=== PATIENT | female | born 1965 | race Caucasian/White ===

== ENCOUNTER 2017-10-09 05:46 | Inpatient (IN) | payer OTHER ==
[2017-10-09] MEDS ORDERED: EPHEDrine SULFATE 50 MG/5 ML SYG (07:00)
[2017-10-09] MEDS ORDERED: morphine SULFATE/PF (10 MG/10 ML) INJ (08:00)
[2017-10-09] MEDS ORDERED: FENTAnyl 50 MCG/ML VIAL (08:00)
[2017-10-09] MEDS ORDERED: ROCURONIUM 50 MG INJ (08:02)
[2017-10-09] MEDS ORDERED: PROPOFOL 20 ML (08:02)
[2017-10-09] MEDS ORDERED: LIDOCAINE 1% (MDV) 20 ML INJ (08:02)
[2017-10-09] MEDS ORDERED: MIDAZOLAM 1 MG/ML 2 ML INJ (08:04)
[2017-10-09] MEDS ORDERED: CEFAZOLIN 1 GM INJ (08:18)
[2017-10-09] MEDS ORDERED: FAMOTIDINE 20 MG INJ (08:23)
[2017-10-09] MEDS ORDERED: ONDANSETRON 4 MG INJ ×2 (08:23→11:15)
[2017-10-09] MEDS ORDERED: METOCLOPRAMIDE 10 MG INJ (08:23)
[2017-10-09] MEDS ORDERED: PHENYLephrine (100 MCG/ML) 5ML SYG ×2 (08:27→08:43)
[2017-10-09] MEDS: VASOPRESSIN 20 UNITS INJ (08:36)
[2017-10-09] MEDS ORDERED: SUGAMMADEX SODIUM 200 MG/2 ML VIAL IV (10:12)
[2017-10-09] MEDS ORDERED: KETOROLAC 30 MG INJ (10:51)
[2017-10-09] MEDS ORDERED: HYDROmorphONE 1 MG/ML SYG IV ×2 (11:00)
[2017-10-09] MEDS ORDERED: ZOLPIDEM 5 MG TAB PO (11:00)
[2017-10-09] MEDS ORDERED: NALOXONE (0.4 MG/ML) INJ IV (11:00)
[2017-10-09] MEDS ORDERED: DIPHENHYDRAMINE 50 MG INJ IV (11:00)
[2017-10-09] MEDS: KETOROLAC 30 MG INJ IV (11:16)
[2017-10-09] MEDS: ONDANSETRON 4 MG INJ IV ×5 (11:21→23:30)
[2017-10-09] MEDS ORDERED: DEXTROSE 50% 50 ML SYRINGE IV ×2 (14:00)
[2017-10-09] MEDS ORDERED: GLUCAGON 1 MG INJ IM (14:00)
[2017-10-09] MEDS ORDERED: GLUCOSE GEL 15 GRAM TUBE PO ×2 (14:00)
[2017-10-09] MEDS ORDERED: GLUCOSE GEL 15 GRAM TUBE BUCCAL (14:00)
[2017-10-09] MEDS: LACTATED RINGER'S 1,000 ML IV ×2 (14:15→22:24)
[2017-10-09] MEDS: INSULIN ASPART [NOVOLOG] 3 ML PEN SC ×2 (17:00→21:00)
[2017-10-10] MEDS: metFORMIN 500 MG TAB PO ×2 (00:21→09:06)
[2017-10-10] MEDS: CEPASTAT LOZENGE MT (00:21)
[2017-10-10] MEDS: KETOROLAC 30 MG INJ IV (00:24)
[2017-10-10] MEDS: ACCU-CHEK XX (02:00)
[2017-10-10] MEDS: ONDANSETRON 4 MG INJ IV ×6 (03:43→23:30)
[2017-10-10 04:55] LABS: ADD MAN DIFF? NO
[2017-10-10 04:58] LABS: WHITE BLOOD COUNT 10.4 10^3/ul (4.8-10.8)
[2017-10-10 04:58] LABS: BASOPHILS % 0.2 % (0.0-2.0); EOSINOPHILS % 0.2 % (0.0-7.0); HEMATOCRIT 29.7 % (37.0-47.0); HEMOGLOBIN 9.7 g/dl (12.0-16.0); LYMPHOCYTES # 1.8 10^3/ul (0.8-2.9); LYMPHOCYTES % 17.2 % (15.0-51.0); MEAN CORPUSCULAR HEMOGLOBIN 29.2 pg (29.0-33.0); MEAN CORPUSCULAR HGB CONC 32.7 g/dl (32.0-37.0); MEAN CORPUSCULAR VOLUME 89.5 fl (82.0-101.0); MEAN PLATELET VOLUME 9.6 fl (7.4-10.4); MONOCYTE # 0.7 10^3/ul (0.3-0.9); MONOCYTES % 6.9 % (0.0-11.0); NEUTROPHIL # 7.8 10^3/ul (1.6-7.5); NEUTROPHILS % 75.3 % (39.0-77.0); PLATELET COUNT 213 10^3/UL (140-415); RED BLOOD COUNT 3.32 10^6/ul (4.20-5.40); RED CELL DISTRIBUTION WIDTH 12.8 % (11.5-14.5)
[2017-10-10 05:17] LABS: ALANINE AMINOTRANSFERASE 33 IU/L (13-69); ALBUMIN/GLOBULIN RATIO 1.03; ALKALINE PHOSPHATASE 67 IU/L (42-121); ANION GAP 10 (8-16); ASPARTATE AMINO TRANSFERASE 13 IU/L (15-46); BILIRUBIN,INDIRECT 0.6 mg/dl (0-1.1); BILIRUBIN,TOTAL 0.6 mg/dl (0.2-1.3); BLOOD UREA NITROGEN 4 mg/dl (7-20); CALCIUM 8.5 mg/dl (8.4-10.2); CARBON DIOXIDE 26 mmol/L (21-31); CHLORIDE 105 mmol/L (97-110); CREATININE 0.53 mg/dl (0.44-1.00); GLUCOSE 125 mg/dl (70-220); POTASSIUM 3.9 mmol/L (3.5-5.1); SODIUM 137 mmol/L (135-144); TOTAL PROTEIN 5.9 g/dl (6.1-8.1)
[2017-10-10] MEDS: LACTATED RINGER'S 1,000 ML IV ×3 (06:00→18:47)
[2017-10-10] MEDS: BISACODYL 10 MG SUPP PR ×3 (06:42→17:00)
[2017-10-10] MEDS: MAGNESIUM HYDROXIDE 30ML CUP PO ×3 (06:42→20:28)
[2017-10-10] MEDS: INSULIN ASPART [NOVOLOG] 3 ML PEN SC ×4 (07:20→21:00)
[2017-10-10] MEDS ORDERED: OXYCODONE/ACETAMINOPHEN (5/325) TAB PO ×2 (11:00)
[2017-10-10] MEDS: OXYCODONE/ACETAMINOPHEN (5/325) TAB PO ×2 (16:09→19:58)
[2017-10-11] MEDS: ACCU-CHEK XX (01:35)
[2017-10-11] MEDS: OXYCODONE/ACETAMINOPHEN (5/325) TAB PO ×4 (01:52→14:29)
[2017-10-11] MEDS: ONDANSETRON 4 MG INJ IV ×3 (03:29→11:30)
[2017-10-11] MEDS: LACTATED RINGER'S 1,000 ML IV (04:56)
[2017-10-11 05:03] LABS: ADD MAN DIFF? NO
[2017-10-11 05:07] LABS: BASOPHILS % 0.5 % (0.0-2.0); EOSINOPHILS # 0.3 10^3/ul (0.0-0.5); EOSINOPHILS % 4.2 % (0.0-7.0); HEMOGLOBIN 8.8 g/dl (12.0-16.0); LYMPHOCYTES # 1.7 10^3/ul (0.8-2.9); LYMPHOCYTES % 28.9 % (15.0-51.0); MEAN CORPUSCULAR HEMOGLOBIN 29.3 pg (29.0-33.0); MEAN CORPUSCULAR HGB CONC 32.6 g/dl (32.0-37.0); MEAN PLATELET VOLUME 9.9 fl (7.4-10.4); MONOCYTE # 0.6 10^3/ul (0.3-0.9); MONOCYTES % 9.6 % (0.0-11.0); NEUTROPHIL # 3.4 10^3/ul (1.6-7.5); NEUTROPHILS % 56.6 % (39.0-77.0); PLATELET COUNT 195 10^3/UL (140-415); RED CELL DISTRIBUTION WIDTH 13.3 % (11.5-14.5)
[2017-10-11 05:28] LABS: ANION GAP 7 (8-16); BLOOD UREA NITROGEN 3 mg/dl (7-20); CALCIUM 8.3 mg/dl (8.4-10.2); CARBON DIOXIDE 28 mmol/L (21-31); CHLORIDE 105 mmol/L (97-110); CREATININE 0.51 mg/dl (0.44-1.00); GLUCOSE 123 mg/dl (70-220); POTASSIUM 3.4 mmol/L (3.5-5.1); SODIUM 137 mmol/L (135-144)
[2017-10-11] MEDS: CEPASTAT LOZENGE MT (06:59)
[2017-10-11] MEDS: INSULIN ASPART [NOVOLOG] 3 ML PEN SC ×2 (07:20→11:10)
[2017-10-11] MEDS: MAGNESIUM HYDROXIDE 30ML CUP PO ×2 (08:34→08:43)
[2017-10-11] MEDS: metFORMIN 500 MG TAB PO (09:54)
== END 2017-10-11 16:00 | disposition home or self-care (01) | DRG 743 ==
LOC: REC 05:46 → MS1 12:59
PROVIDERS: Obstetrics & Gynecology
PROC: 0UT97ZZ Resection of Uterus, Via Natural or Artificial Opening (ICD-10-PCS; principal; 2017-10-09 08:00)
PROC: 0UTC7ZZ Resection of Cervix, Via Natural or Artificial Opening (ICD-10-PCS; 2017-10-09 08:00)
PROC: 0JQC0ZZ Repair Pelvic Region Subcutaneous Tissue and Fascia, Open Approach (ICD-10-PCS; 2017-10-09 08:00)
PROC: 0UBG7ZZ Excision of Vagina, Via Natural or Artificial Opening (ICD-10-PCS; 2017-10-09 08:00)
DX: N81.3 Complete uterovaginal prolapse (principal); E11.9 Type 2 diabetes mellitus without complications
CPT/HCPCS: 80048; 80053; 82962; 84702; 85025; 86850; 86900; 86901; 87086; 88305